=== PATIENT | male | born 1990 | race Caucasian/White ===

== ENCOUNTER 2016-09-11 17:38 | Emergency (ER) | payer SELFPAY ==
[~2016-09-11] VITALS: Ht 170.2 cm; Wt 91.0 kg
[2016-09-11] MEDS ORDERED: KETOROLAC 30MG/ML VIAL IV ONE (21:15)
[2016-09-11] MEDS ORDERED: CEFTRIAXONE 1 G PREMIX 50 ML IV ONE (21:15)
[2016-09-11] MEDS ORDERED: DIPHENHYDRAMINE 50MG/ML VIAL IV ONE (21:15)
[2016-09-11] MEDS ORDERED: BACITRACIN ZINC OINT UDPKT TOP ONE (21:15)
[2016-09-11] MEDS ORDERED: TETANUS, DIPHTHERIA, PERTUSSIS VAC/PF 0.5ML (>7YR OLD) IM ONE (21:15)
[2016-09-11 23:00] VITALS: BP 136/90
== END 2016-09-11 23:52 | disposition home or self-care (01) ==
LOC: ER 21:02
DX: S50.861A Insect bite (nonvenomous) of right forearm, initial encounter (principal); L03.113 Cellulitis of right upper limb; W57.XXXA Bitten or stung by nonvenomous insect and other nonvenomous arthropods, initial encounter; Y93.89 Activity, other specified; Y92.018 Other place in single-family (private) house as the place of occurrence of the external cause
CPT/HCPCS: 90471; 90715; 96365; 96375; 99284; J0696; J1200; J1885; Z7610